=== PATIENT | female | born 1990 | race Caucasian/White ===

== ENCOUNTER 2016-09-14 11:01 | Outpatient (CLI) | payer OTHER ==
[2016-09-14 11:37] LABS: RED BLOOD COUNT 3.66 M/UL (4.00-5.10); WHITE BLOOD COUNT 12.3 K/UL (4.5-11.0)
== END 2016-09-14 12:09 | disposition home or self-care (01) ==
LOC: GENOP 11:01
PROVIDERS: Obstetrics & Gynecology
DX: Z01.812 Encounter for preprocedural laboratory examination (principal); O34.219 Maternal care for unspecified type scar from previous cesarean delivery; Z3A.00 Weeks of gestation of pregnancy not specified
CPT/HCPCS: 81001; 85025; J7120

== ENCOUNTER 2016-09-15 06:33 | Inpatient (IN) | payer OTHER ==
[2016-09-16 04:02] LABS: HEMOGLOBIN 9.2 gm/dl (12.3-15.3)
[2016-09-19] MEDS ORDERED: IBUPROFEN600 MG PO (10:46)
[2016-09-19] MEDS ORDERED: PERCOCET 5-3251 EACH PO (10:47)
[2016-09-19] MEDS ORDERED: COLACE 100MG C100 MG PO (10:47)
== END 2016-09-19 12:07 | disposition home or self-care (01) | DRG 765 ==
LOC: OB 06:33
PROVIDERS: ADMIT Obstetrics & Gynecology
PROC: 3E0R3CZ (ICD-10-PCS; 2016-09-15)
PROC: 10D00Z1 Extraction of Products of Conception, Low, Open Approach (ICD-10-PCS; principal; 2016-09-15 09:00)
PROC: 3E0234Z Introduction of Serum, Toxoid and Vaccine into Muscle, Percutaneous Approach (ICD-10-PCS; 2016-09-19)
DX: O36.5930 Maternal care for other known or suspected poor fetal growth, third trimester, not applicable or unspecified (principal); O98.32 Other infections with a predominantly sexual mode of transmission complicating childbirth; O34.219 Maternal care for unspecified type scar from previous cesarean delivery; N85.8 Other specified noninflammatory disorders of uterus; O99.824 Streptococcus B carrier state complicating childbirth; O99.334 Smoking (tobacco) complicating childbirth; F17.210 Nicotine dependence, cigarettes, uncomplicated; Z3A.37 37 weeks gestation of pregnancy; Z37.0 Single live birth; A63.0 Anogenital (venereal) warts; O99.344 Other mental disorders complicating childbirth; F32.9 Major depressive disorder, single episode, unspecified; F41.0 Panic disorder [episodic paroxysmal anxiety]; O99.89 Other specified diseases and conditions complicating pregnancy, childbirth and the puerperium; M79.7 Fibromyalgia; Z23 Encounter for immunization; Z79.899 Other long term (current) drug therapy; Z83.3 Family history of diabetes mellitus; Z82.49 Family history of ischemic heart disease and other diseases of the circulatory system; Z80.49 Family history of malignant neoplasm of other genital organs; Z80.3 Family history of malignant neoplasm of breast; Z81.8 Family history of other mental and behavioral disorders
CPT/HCPCS: 36415; 81001; 82800; 85014; 85018; 85025; 90707; C9113; J0690; J2270; J2274; J2405; J2590; J2765; J3010; J3430; J7120; Q0162